=== PATIENT | male | born 2000 | race Caucasian/White ===

== ENCOUNTER 2019-12-07 12:59 | Emergency (ER) | payer BC, SELFPAY ==
[2019-12-07 13:06] VITALS: BP 109/62; PULSE 79; RESP 16; TEMP 36.9; O2SAT 99
--- NOTE | 2019-12-07 13:20 | ED.EAR ---
HPI - Ear Problem General Chief complaint: Ear Stated complaint: EARACHE Time Seen by Provider: 12/07/19 13:21 Source: patient Mode of arrival: ambulatory Limitations: no limitations History of Present Illness HPI Narrative: A 19 y/o male, who is a nonsmoker/nondrinker, presents to with c/o a right earache for 2 weeks. Pt states that he was diagnosed with mononucleosis and a right ear infection 10 days ago with a blood test. Pt was placed on Amoxiclav and is due to take his last dose of this antibiotic tonight. Pt states the medicine helped initially, but his earache is worse now. He reports a resolved fever, resolved rhinorrhea, and resolved sore throat, but denies a cough. Pt does not use an inhaler or nebulizer at home. Location: right ear Related Data Home Medications Medication Instructions Recorded Confirmed Fish Oil 12/07/19 L-Lysine 12/07/19 Vitamin C 12/07/19 amoxicillin-pot clavulanate 1 tablet PO Q12H 12/07/19 12/07/19 ibuprofen 12/07/19 Allergies Allergy/AdvReac Type Severity Reaction Status Date / Time No Known Allergies Allergy Verified 12/07/19 13:14 Review of Systems Review of Systems: Narrative: General/Constitutional: Reports: resolved fever; Denies: weight loss Eyes: Denies: Redness,discharge Ears/Nose/Throat: Reports: right earache, resolved rhinorrhea, resolved sore throat; Denies: Epistaxis,ear discharge Respiratory: Denies: Hemoptysis, cough Gastrointestinal: Denies: Vomiting, Bleeding-rectal Skin: Denies: Lumps, eruption Neurologic: Denies: Focal Weakness,Sz Hematologic: Denies: Petechiae/Purpura Psychiatric: Denies: Suicidal ideation All systems reviewed & are unremarkable except as noted in HPI and below PMFSH Past Medical History Medical History (Updated 12/07/19 @ 14:01 by Guy Collins MD) Infection of right ear Mononucleosis Social History Social History (Updated 12/07/19 @ 13:52 by Mone Gutierrez) Smoking status: Never smoker Alcohol intake: never Comments No PCP on file. At time of signature, agree with nursing past medical, surgical, social and family history. There is no relevant family history pertinent to the presenting complaint Exam Narrative: Exam Narrative: General Appearance: Well appearing, Well nourished EYE: PERRLA, Conjunctiva clear Ears: Auditory canal normal. Left TM normal, right TM retracted, redness. Nose: Rhinorrhea, Mucousal erythema Mouth/Throat: MM moist, Uvula midline, Pharyngeal erythema Neck: Supple, No adenopathy Respiratory: No respiratory distress, Breath sounds equal, Clear to auscultation Cardiovascular: RRR, No JVD Musculoskeletal: Non tender, Normal strength Skin: Warm, Dry Neurological: A&O x3, CN II-XII intact Psychiatric: Normal mood, Normal affect Course Vital Signs Vital signs: Vital Signs Temperature 98.5 F 12/07/19 13:06 Pulse Rate 79 12/07/19 13:06 Respiratory Rate 16 12/07/19 13:06 Blood Pressure 109/62 12/07/19 13:06 Pulse Oximetry 99 12/07/19 13:06 Temperature 98.5 F 12/07/19 13:06 Pulse Rate 79 12/07/19 13:06 Respiratory Rate 16 12/07/19 13:06 Blood Pressure 109/62 12/07/19 13:06 Pulse Oximetry 99 12/07/19 13:06 Medical Decision Making Vital Signs Vital Signs: Vital Signs Temperature 98.5 F 12/07/19 13:06 Pulse Rate 79 12/07/19 13:06 Respiratory Rate 16 12/07/19 13:06 Blood Pressure 109/62 12/07/19 13:06 Pulse Oximetry 99 12/07/19 13:06 Temperature 98.5 F 12/07/19 13:06 Pulse Rate 79 12/07/19 13:06 Respiratory Rate 16 12/07/19 13:06 Blood Pressure 109/62 12/07/19 13:06 Pulse Oximetry 99 12/07/19 13:06 Discharge Plan Discharge Clinical Impression: Otitis media Qualifiers: Otitis media type: suppurative Chronicity: acute Laterality: right Recurrence: not specified as recurrent Spontaneous tympanic membrane rupture: without spontaneous rupture Qualified Code(s): H66.001 - Acute suppurative
== END 2019-12-07 13:49 | disposition home or self-care (01) ==
PROVIDERS: Emergency Provider Emergency Medicine
DX: H66.001 Acute suppurative otitis media without spontaneous rupture of ear drum, right ear (principal)
CPT/HCPCS: 99203; G0463